=== PATIENT | female | born 1980 | race Caucasian/White ===

== ENCOUNTER 2022-12-27 11:57 | Emergency (ER) | payer MEDICAID, MEDICARE ==
[~2022-12-27] VITALS: Ht 160 cm; Wt 52.3 kg
[2022-12-27] MEDS ORDERED: diphenhydrAMINE 50 mg/ml inj IM ONE (12:00)
[2022-12-27] MEDS ORDERED: LORazepam 2 mg/ml vial IM ONE (12:00)
[2022-12-27] MEDS: haloperidol lactate 5mg/ml inj IM ONE (12:30)
--- NOTE | 2022-12-27 12:55 | NUR ---
Pt given BSC as pt requesting to use restroom. Pt proceeded to take catch lópez out of BSC and dump urine into sink despite instruction not to do so.
[2022-12-27 14:54] LABS: BASOPHILS % (AUTO) 0.3 % (0-1); EOSINOPHILS % (AUTO) 0 % (0-6); HEMATOCRIT 37.2 % (35.0-45.0); HEMOGLOBIN 12.3 g/dl (12.0-16.0); LYMPHOCYTES # (AUTO) 1.5 X10'3 (1.1-4.8); LYMPHOCYTES % (AUTO) 9.9 % (21-51); MEAN CORPUSCULAR HEMOGLOBIN 29.1 PG (27.0-31.0); MEAN CORPUSCULAR HGB CONC 33.2 g/dL (33.0-36.5); MEAN CORPUSCULAR VOLUME 87.9 FL (78-98); MEAN PLATELET VOLUME 8.4 FL (7.4-10.4); MONOCYTES # (AUTO) 1.2 X10'3 (0-0.9); MONOCYTES % (AUTO) 7.7 % (2-12); NEUTROPHILS # (AUTO) 12.4 X10'3 (1.8-7.7); NEUTROPHILS % (AUTO) 82.1 % (42-75); PLATELET COUNT 277 X10'3 (140-440); RED BLOOD COUNT 4.24 X10'6 (4.20-5.60); RED CELL DISTRIBUTION WIDTH 15.4 % (11.5-14.5); WHITE BLOOD COUNT 15.1 X10'3 (4.5-11.0)
[2022-12-27 14:59] LABS: ALANINE AMINOTRANSFERASE 24 U/L (12-78); ALBUMIN 3.9 G/DL (3.4-5.0); ALBUMIN/GLOBULIN RATIO 1.2 (1.1-1.5); ALKALINE PHOSPHATASE 92 IU/L (46-116); ANION GAP 10 (8-16); ASPARTATE AMINO TRANSFERASE 37 U/L (10-37); BILIRUBIN,TOTAL 0.5 MG/DL (0.1-1.0); BLOOD UREA NITROGEN 26 MG/DL (7-18); BUN/CREATININE RATIO 28.9 (10.0-20.0); CALCIUM 8.8 MG/DL (8.5-10.1); CHLORIDE 103 MMOL/L (99-107); GLUCOSE 77 MG/DL (70-104); POTASSIUM 4.2 MMOL/L (3.5-5.1); SODIUM 140 MMOL/L (135-145); TOTAL CARBON DIOXIDE 26.8 MMOL/L (24-32); TOTAL PROTEIN 7.2 G/DL (6.4-8.2); eGFR 68 ML/MIN
[2022-12-27 15:08] LABS: CREATINE KINASE 501 U/L (26-192)
[2022-12-27 15:10] LABS: ETHANOL < 0.010 GM/DL (0.0-0.010)
[2022-12-27 18:17] LABS: URINE HCG NEGATIVE (NEG)
[2022-12-27 18:21] LABS: CLARITY,URINE CLEAR (Clear); COLOR,URINE YELLOW (Yellow); GLUCOSE, URINE NEGATIVE (Neg); KETONES,URINE 40 mg/dl (Neg); LEUKOCYTE ESTERASE ,URINE NEGATIVE (Neg); NITRITES, URINE NEGATIVE (Neg); OCCULT BLOOD,URINE NEGATIVE (Neg); PH,URINE 5.5 (4.8-8.0); PROTEIN,URINE NEGATIVE (Neg); UROBILINOGEN,URINE 0.2 E.U/dL (0.2-1.0)
[2022-12-27 18:29] LABS: UA COLLECTION TYPE STRAIGHT CATH
[2022-12-27 18:33] LABS: URINE AMPHETAMINE SCREEN POSITIVE (Neg); URINE BARBITUATE SCREEN NEGATIVE (Neg); URINE BENZODIAZEPINES SCREEN NEGATIVE (Neg); URINE CANNABINOID SCREEN POSITIVE (Neg); URINE COCAINE SCREEN NEGATIVE (Neg); URINE METHADONE SCREEN NEGATIVE (Neg); URINE OPIATE SCREEN NEGATIVE (Neg); URINE PHENCYCLIDINE SCREEN NEGATIVE (Neg)
--- NOTE | 2022-12-28 08:42 | NUR ---
Patient still asleep at this time, breathing normally.
--- NOTE | 2022-12-28 14:54 | NUR ---
Covid19 Binax done and sent to lab
--- NOTE | 2022-12-28 16:30 | NUR ---
Patient sleeping on her right side in bed. No distress observed. Continue to monitor.
[2022-12-28] MEDS ORDERED: NO HOME MEDS (17:54)
--- NOTE | 2022-12-28 19:11 | NUR ---
One to one with the patient who was resting on her bed. She denies ever being on a 5150 before and asked why she was on one now she stated that the officer who brought her in was because he was being a "greg" She denies depression, anxiety, psychotic symptoms or thoughts to harm herself or others. She was oriented to month and year. When asked if she had a plan for food, detention or clothing if she left the hospital she replied "No but I was hoping to get a ride back to [place]" She was made aware that she was in [place]. She has no family here in [facility]. She is chronically homeless. She has been using methamphetamine but initally only admitted to using THC. She ate her dinner and is now back asleep.
--- NOTE | 2022-12-28 20:27 | NUR ---
The patient appears to be sleeping
--- NOTE | 2022-12-28 21:58 | NUR ---
The patient appears to be sleeping
--- NOTE | 2022-12-28 23:33 | NUR ---
The patient appears to be sleeping
--- NOTE | 2022-12-29 01:04 | NUR ---
The patient appears to be sleeping
--- NOTE | 2022-12-29 03:00 | NUR ---
The patient appears to be sleeping
--- NOTE | 2022-12-29 05:01 | NUR ---
The patient appears to be sleeping
[2022-12-29 05:42] VITALS: BP 108/60
--- NOTE | 2022-12-29 06:40 | NUR ---
Nurse received pt resting on her right side with noted rise and fall of chest. No acute distress noted.
--- NOTE | 2022-12-29 08:40 | NUR ---
Pt awoke and utilized the restroom. Pt. then asked, "what was that shot they gave me yesterday, im , it wont harm my baby will it?" Pt. then continued eating her breakfast.
--- NOTE | 2022-12-29 09:06 | NUR ---
1:1 done at bedside, pt denies SI/HI. When asked if she has A/VH pt stated, "I wont answer that, discussing that just gets you in trouble, I dont need that S."
--- NOTE | 2022-12-29 11:05 | NUR ---
Pt appears to be sleeping on her backside, noted rise and fall of chest.
--- NOTE | 2022-12-29 12:39 | NUR ---
Ligia called from [facility] requesting new labs be drawn per a facility seeking placement due to abnomal levels. Doctor orders obtained to get CBC with diff, CMP and CK.
--- NOTE | 2022-12-29 12:42 | NUR ---
Lab drawing blood at this time. Pt cooperative.
[2022-12-29 12:56] LABS: BASOPHILS % (AUTO) 0.6 % (0-1); EOSINOPHILS # (AUTO) 0.1 X10'3 (0-0.9); EOSINOPHILS % (AUTO) 0.9 % (0-6); HEMATOCRIT 41.2 % (35.0-45.0); HEMOGLOBIN 13.7 g/dl (12.0-16.0); LYMPHOCYTES # (AUTO) 1.9 X10'3 (1.1-4.8); LYMPHOCYTES % (AUTO) 27.3 % (21-51); MEAN CORPUSCULAR HEMOGLOBIN 29.5 PG (27.0-31.0); MEAN CORPUSCULAR HGB CONC 33.3 g/dL (33.0-36.5); MEAN CORPUSCULAR VOLUME 88.4 FL (78-98); MEAN PLATELET VOLUME 8.5 FL (7.4-10.4); MONOCYTES # (AUTO) 0.4 X10'3 (0-0.9); MONOCYTES % (AUTO) 6.2 % (2-12); NEUTROPHILS # (AUTO) 4.4 X10'3 (1.8-7.7); PLATELET COUNT 299 X10'3 (140-440); RED BLOOD COUNT 4.66 X10'6 (4.20-5.60); WHITE BLOOD COUNT 6.8 X10'3 (4.5-11.0)
[2022-12-29 13:06] LABS: ALANINE AMINOTRANSFERASE 25 U/L (12-78); ALBUMIN 3.5 G/DL (3.4-5.0); ALBUMIN/GLOBULIN RATIO 0.9 (1.1-1.5); ALKALINE PHOSPHATASE 93 IU/L (46-116); ANION GAP 8 (8-16); ASPARTATE AMINO TRANSFERASE 32 U/L (10-37); BILIRUBIN,TOTAL 0.4 MG/DL (0.1-1.0); BLOOD UREA NITROGEN 18 MG/DL (7-18); BUN/CREATININE RATIO 18.2 (10.0-20.0); CALCIUM 9.3 MG/DL (8.5-10.1); CHLORIDE 106 MMOL/L (99-107); CREATINE KINASE 211 U/L (26-192); CREATININE 0.99 MG/DL (0.40-0.90); GLUCOSE 119 MG/DL (70-104); POTASSIUM 5.2 MMOL/L (3.5-5.1); SODIUM 143 MMOL/L (135-145); TOTAL CARBON DIOXIDE 28.8 MMOL/L (24-32); TOTAL PROTEIN 7.4 G/DL (6.4-8.2); eGFR 61 ML/MIN
--- NOTE | 2022-12-29 13:43 | NUR ---
[facility] called and patient has been accepted at [facility]. Accepted by Dr. Tang [phone]. [facility] looking for a public transit bus driver. Depending on the public transit bus driver, patient will be taken today or tomorrow.
--- NOTE | 2022-12-29 14:09 | NUR ---
Pt resting on her right side, noted rise and fall of chest.
--- NOTE | 2022-12-29 14:25 | NUR ---
Pt. awake and reviewing paperwork with registration. Pt. stated, "I dont know why I'm here, I wasnt read my rights, Im and the [employer] isnt helping me, does anyone smoke, this is like a senior care." Pt. requesting the TV. TV set up at end of bed.
--- NOTE | 2022-12-29 15:25 | NUR ---
Pt becoming restless about her stay here, asking how much longer she has to stay. Pt informed [facility] is working on her discharge. Pt watching tv at this time.
--- NOTE | 2022-12-29 15:34 | NUR ---
Nurse to Nurse done with Selene from [facility]. Nurse spoke with [facility] and pt will be picked up at approx. 1730.
--- NOTE | 2022-12-29 15:43 | NUR ---
Order obtained for PO Ativan 1mg due to pt becoming more restless and agitated regarding stay here. Pt continues to voice concerns about being and being held here against her will. HCG level negative. VS 134/56 p. 76 r. 16 98% RA.
[2022-12-29] MEDS ORDERED: LORazepam 1 MG tablet PO ONE (15:45)
== END 2022-12-29 16:15 ==
LOC: ER 11:58 → EDBD 11:58 → ER 12-29 16:15
DX: F29 Unspecified psychosis not due to a substance or known physiological condition (principal); Z20.822 Contact with and (suspected) exposure to COVID-19; F15.90 Other stimulant use, unspecified, uncomplicated; Z79.899 Other long term (current) drug therapy
CPT/HCPCS: 36415; 70450; 80053; 80305; 80320; 81003; 81025; 82550; 84443; 85025; 87811; 96372; 99285; J1200; J1630; J2060; A4353

== ENCOUNTER 2023-02-17 16:48 | Emergency (ER) | payer MEDICARE ==
[~2023-02-17] VITALS: Ht 147.3 cm; Wt 48.2 kg
[~2023-02-17 16:48] MED LIST: NO HOME MEDS
[2023-02-17 16:56] VITALS: BP 106/80
[2023-02-17] MEDS ORDERED: bacitracin 15gm ointment TP ONE (17:35)
[2023-02-17] MEDS ORDERED: cephalexin 500mg capsule PO ONE (17:35)
[2023-02-17 17:36] LABS: URINE HCG NEGATIVE (NEG)
[2023-02-17 17:37] LABS: CLARITY,URINE SLIGHTLY CLOUDY (Clear); GLUCOSE, URINE NEGATIVE (Neg); KETONES,URINE TRACE mg/dl (Neg); LEUKOCYTE ESTERASE ,URINE NEGATIVE (Neg); NITRITES, URINE NEGATIVE (Neg); OCCULT BLOOD,URINE NEGATIVE (Neg); PH,URINE 5.5 (4.8-8.0); PROTEIN,URINE 30 mg/dl (Neg)
[2023-02-17 17:38] LABS: COLOR,URINE DARK YELLOW (Yellow); UA COLLECTION TYPE CLN CATCH MIDSTREAM
[2023-02-17 17:41] LABS: BACTERIA,URINE FEW /HPF (Neg); FINE GRANULAR CAST 0-3 /LPF (NEGATIVE); MUCUS STRANDS MANY /LPF (Neg); RBC,URINE 0-2 /HPF (0-2); SQUAMOUS EPITHELIAL CELL,UR FEW /LPF (FEW); WBC,URINE 0-4 /HPF (0-4)
[2023-02-17] MEDS ORDERED: CEPH-585 PO (17:45)
== END 2023-02-17 18:12 | disposition home or self-care (01) ==
LOC: ER 16:49
DX: L03.116 Cellulitis of left lower limb (principal); Z59.00 Homelessness unspecified; Z56.0 Unemployment, unspecified
CPT/HCPCS: 81001; 81025; 99283

== ENCOUNTER 2023-06-14 22:53 | Emergency (ER) | payer MEDICARE ==
[~2023-06-14] VITALS: Ht 147.3 cm; Wt 59.1 kg
[~2023-06-14 22:53] MED LIST changes: +CEPH-585 PO
[2023-06-14 23:31] LABS: BASOPHILS # (AUTO) 0.1 X10'3 (0-0.2); BASOPHILS % (AUTO) 0.6 % (0-1); EOSINOPHILS # (AUTO) 0.1 X10'3 (0-0.9); EOSINOPHILS % (AUTO) 0.9 % (0-6); HEMATOCRIT 38.7 % (35.0-45.0); HEMOGLOBIN 12.7 g/dl (12.0-16.0); LYMPHOCYTES # (AUTO) 2.2 X10'3 (1.1-4.8); LYMPHOCYTES % (AUTO) 21.1 % (21-51); MEAN CORPUSCULAR HEMOGLOBIN 28.8 PG (27.0-31.0); MEAN CORPUSCULAR HGB CONC 32.9 g/dL (33.0-36.5); MEAN CORPUSCULAR VOLUME 87.4 FL (78-98); MEAN PLATELET VOLUME 8.3 FL (7.4-10.4); MONOCYTES # (AUTO) 0.8 X10'3 (0-0.9); MONOCYTES % (AUTO) 7.5 % (2-12); NEUTROPHILS # (AUTO) 7.3 X10'3 (1.8-7.7); NEUTROPHILS % (AUTO) 69.9 % (42-75); PLATELET COUNT 376 X10'3 (140-440); RED BLOOD COUNT 4.42 X10'6 (4.20-5.60); RED CELL DISTRIBUTION WIDTH 14.5 % (11.5-14.5); WHITE BLOOD COUNT 10.4 X10'3 (4.5-11.0)
[2023-06-14 23:43] LABS: ALANINE AMINOTRANSFERASE 22 U/L (12-78); ALBUMIN 3.9 G/DL (3.4-5.0); ALBUMIN/GLOBULIN RATIO 0.8 (1.1-1.5); ALKALINE PHOSPHATASE 101 IU/L (46-116); ANION GAP 9 (8-16); ASPARTATE AMINO TRANSFERASE 19 U/L (10-37); BILIRUBIN,TOTAL 0.3 MG/DL (0.1-1.0); BLOOD UREA NITROGEN 20 MG/DL (7-18); BUN/CREATININE RATIO 19.8 (10.0-20.0); CALCIUM 9.6 MG/DL (8.5-10.1); CHLORIDE 106 MMOL/L (99-107); CREATININE 1.01 MG/DL (0.40-0.90); GLUCOSE 104 MG/DL (70-104); POTASSIUM 3.9 MMOL/L (3.5-5.1); SODIUM 142 MMOL/L (135-145); TOTAL CARBON DIOXIDE 27.4 MMOL/L (24-32); TOTAL PROTEIN 8.6 G/DL (6.4-8.2); eCRCL 46 ML/MIN; eGFR 60 ML/MIN
[2023-06-14 23:52] LABS: ETHANOL < 10 MG/DL (<10); THYROID STIMULATING HORMONE 3.15 ulU/ml (0.34-4.50)
--- NOTE | 2023-06-14 23:52 | NUR ---
The patient moved to the ER overflow from the triage area. She is acutely psychotic and responding to internal stimuli. She is currently yelling in the bathroom with people who are not there. She was brought in by [employer] on a 5150 for being a danger to herself after being found running into traffic.
[2023-06-14] MEDS ORDERED: olanzapine 10mg tablet PO STA (23:54)
--- NOTE | 2023-06-15 00:15 | NUR ---
The patient continues to have loud conversations with people who are not there. She accepted PO Zyprexa and she is currently eating.
[2023-06-15 00:34] LABS: URINE HCG NEGATIVE (NEG)
[2023-06-15 00:36] LABS: BILIRUBIN,URINE NEGATIVE (Neg); CLARITY,URINE SLIGHTLY CLOUDY (Clear); COLOR,URINE YELLOW (Yellow); GLUCOSE, URINE NEGATIVE (Neg); KETONES,URINE TRACE mg/dl (Neg); LEUKOCYTE ESTERASE ,URINE SMALL (Neg); NITRITES, URINE NEGATIVE (Neg); OCCULT BLOOD,URINE TRACE-INTACT (Neg); PH,URINE 5.5 (4.8-8.0); PROTEIN,URINE NEGATIVE (Neg); UROBILINOGEN,URINE 0.2 E.U/dL (0.2-1.0)
[2023-06-15 00:41] LABS: UA COLLECTION TYPE CLN CATCH MIDSTREAM
[2023-06-15 00:45] LABS: BACTERIA,URINE 1+ /HPF (Neg); MUCUS STRANDS FEW /LPF (Neg); SQUAMOUS EPITHELIAL CELL,UR FEW /LPF (FEW)
[2023-06-15 00:46] LABS: AMORPHOUS URATES 1+; TRANSITIONAL EPI CELLS,URINE FEW /HPF; URINE AMPHETAMINE SCREEN POSITIVE (Neg); URINE BARBITUATE SCREEN NEGATIVE (Neg); URINE BENZODIAZEPINES SCREEN NEGATIVE (Neg); URINE CANNABINOID SCREEN POSITIVE (Neg); URINE COCAINE SCREEN NEGATIVE (Neg); URINE METHADONE SCREEN NEGATIVE (Neg); URINE OPIATE SCREEN NEGATIVE (Neg); URINE PHENCYCLIDINE SCREEN NEGATIVE (Neg)
--- NOTE | 2023-06-15 01:03 | NUR ---
The patient is resting on her bed and is much less loud.
--- NOTE | 2023-06-15 02:38 | NUR ---
PACKET SENT TO [facility]
--- NOTE | 2023-06-15 03:01 | NUR ---
The patient briefly awake and eating some crackers.
--- NOTE | 2023-06-15 05:04 | NUR ---
The patient appears to be sleeping
--- NOTE | 2023-06-15 06:21 | NUR ---
Pt. awake in bed resting on her backside, no acute distress noted.
--- NOTE | 2023-06-15 08:25 | NUR ---
Pt resting on her left side with eyes closed, noted rise and fall of chest.
--- NOTE | 2023-06-15 09:30 | NUR ---
Pt being evaluated by [facility]. Pt eating breakfast at this time as well. No acute distress noted.
--- NOTE | 2023-06-15 11:30 | NUR ---
Pt resting with eyes closed, noted rise and fall of chest.
--- NOTE | 2023-06-15 12:58 | NUR ---
Pt eating lunch at her bedside, no acute distress noted.
--- NOTE | 2023-06-15 13:41 | NUR ---
Pt appears to be sleeping. RR even and unlabored. No distress noted.
[2023-06-15 14:53] VITALS: BP 102/64; PULSE 61; RESP 16; TEMP 98.2; O2SAT 98
--- NOTE | 2023-06-15 15:49 | NUR ---
Pt. resting on her backside, no acute distress noted. Rise and fall of chest noted.
--- NOTE | 2023-06-15 17:04 | NUR ---
Note ashanti in EDM - 06/15/23 at 1706 by GUSTAVONN Pt. resting with eyes closed on left side, noted rise and fall of chest.
== END 2023-06-15 16:15 | disposition home or self-care (01) ==
LOC: ER 22:57
DX: F15.10 Other stimulant abuse, uncomplicated (principal); Z20.822 Contact with and (suspected) exposure to COVID-19; F29 Unspecified psychosis not due to a substance or known physiological condition
CPT/HCPCS: 36415; 80053; 80305; 80320; 81001; 81025; 84443; 85025; 87811; 99285